=== PATIENT | female | born 1990 | race Caucasian/White ===

== ENCOUNTER 2020-01-24 07:17 | Inpatient (IN) ==
[2020-01-24] MEDS ORDERED: OXYTOCIN 30 UNITS/500 ML BAG IV PRN ×3 (08:22→22:25)
--- NOTE | 2020-01-24 09:13 | Obstetrical Progress Note ---
Date of Service January 24, 2020 Assessment & Plan Admission and Anticipated Discharge Date Admission Date: January 24, 2020 Subjective Met pt and spouse reviewed PNC here for induction for postdates FHR; CAt1 ctx; irregular VE; /-3 Flores bulb placed in cervix with 30cc saline pt tolerated procedure well will start Pitocin augmentation Results & Data ([facility]) Vital Signs (Past 12 Hours) Vital Signs Temp Pulse Resp BP 01/24/20 07:29 36.8 C 18 01/24/20 07:25 71 119/71
[2020-01-24] MEDS: LACTATED RINGER'S 1,000 ML IV PRN ×3 (09:23→17:35)
[2020-01-24 09:26] LABS: Hematocrit (blood only) 36.9 % (37-47); Hemoglobin 12.8 g/dL (12.0-16.0); Mean Corpuscular Volume 92.3 fL (80-100); Platelet Count 210 K/uL (130-400); RDW Coefficient of Variation 12.9 % (11.5-14.5); RDW Standard Deviation 43.7 fL (36.4-46.3); White Blood Count 7.63 K/uL (4.8-10.8)
[2020-01-24 09:28] LABS: Mean Corpuscular Hgb Conc 34.7 g/dL (32-36)
[2020-01-24] MEDS ORDERED: BUPIVACAINE 0.25% 30 ML VIAL ONE (16:25)
[2020-01-24] MEDS ORDERED: fentaNYL 2MCG/ML ROPIV 1.25MG/ML 100 ML BAG EPI ONE (16:25)
[2020-01-24] MEDS ORDERED: fentaNYL citrate 100 MCG/2 ML VIAL ONE (16:25)
[2020-01-24] MEDS ORDERED: ePHEDrine sulfate 50 MG/ML AMP ONE (16:25)
--- NOTE | 2020-01-24 16:43 | Anesthesiology Consultation ---
Date of Service January 24, 2020 Assessment & Plan (1) Encounter for pre-operative examination: Chart Review Chart Review: Patient NOT seen in Pre Admission Testing and Acceptable Risk for Labor Epidural Consults Requested none ASA ASA2 Proposed Anesthesia Anesthesia Type: Labor Epidural Risk / Benefits Reviewed With: PT / POA / Parent / Guardian, Accepts Plan and Informed Consent Obtained History Height/Weight Height: 5 ft 5 in Weight: 73.482 kg Allergies Allergy/AdvReac Type Severity Reaction Status Date / Time No Known Allergies Allergy Mild Verified 12/22/19 19:36 Medications Home Medications Medication Instructions Recorded Confirmed Last Taken PNV cmb#95-ferrous fumarate-FA 1 tab PO DAILY 12/22/19 01/24/20 01/23/20 [] Active Medications Generic Name Dose Route Start Last Admin Trade Name Freq PRN Reason Stop Dose Admin Lactated Ringer's 1,000 mls @ 125 mls/hr 01/24/20 08:22 01/24/20 16:18 Lr IV 01/26/20 08:21 999 mls/hr .Q8H PRN Infusion L&D Protocol Protocol Oxytocin 30 units in 500 mls @ 10 mls/hr 01/24/20 09:11 01/24/20 15:05 Pitocin IV 01/26/20 09:10 0.6 units/hr .Q24H PRN 10 mls/hr Labor Induction/Augmentation Titration Protocol 0.6 UNITS/HR NPO Date Last Intake of Fluids: 01/24/20 Time Last Intake of Fluids: 16:55 Date Last Intake of Solids: 01/24/20 Time Last Intake of Solids: 07:00 Past Medical History Medical History 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 Patient denies active use of anticoagulants other than low dose aspirin. Patient denies numbness, tingling or weakness in lower extremities. Negative for chest pain or shortness of breath. Physical Exam Vital Signs Last Vital Signs Temp 37.0 C 01/24/20 16:31 Pulse 75 01/24/20 16:37 Resp 20 01/24/20 16:31 BP 111/71 01/24/20 16:31 Pulse Ox 99 01/24/20 16:37 Constitutional not obese (Gravid uterus) ENMT Mouth: no TMJ abnormality and oral opening not small Thyromental Distance: > or= 3.5 Finger Breadths Mallampati Class: II Neck normal visual inspection; neck extension not limited Respiratory normal respiratory effort Auscultation: lungs clear to auscultation bilaterally Cardiovascular Rate/Rhythm: regular rate and regular rhythm Heart Sounds: no murmur Neurologic moves all extremities Motor/Sensory: no sensory deficit Psychiatric Orientation: alert and oriented x 3 Testing Laboratory Results 01/24/20 08:36
[2020-01-24] MEDS ORDERED: NALOXONE HCL 1 MG in SODIUM CHLORIDE 0.9% 1000ML 1,000 ML IV PRN (17:33)
[2020-01-24] MEDS ORDERED: ePHEDrine sulfate 50 MG/ML AMP IV PRN (17:33)
[2020-01-24] MEDS ORDERED: fentaNYL 2MCG/ML ROPIV 1.25MG/ML 100 ML BAG EPI PRN (17:33)
[2020-01-24] MEDS ORDERED: ONDANSETRON INJ 2 MG/ML 2 ML VIAL IV PRN (17:33)
[2020-01-24] MEDS ORDERED: NALOXONE HCL 0.4 MG/1 ML VIAL/CARP IV PRN (17:33)
[2020-01-24] MEDS ORDERED: DiphenhydrAMINE HCL 50 MG/ML VIAL IV PRN (17:33)
[2020-01-24] MEDS ORDERED: NALBUPHINE HCL INJ 10 MG/ML AMP IV PRN (17:33)
--- NOTE | 2020-01-24 18:12 | Obstetrical Progress Note ---
Date of Service January 24, 2020 Assessment & Plan Admission and Anticipated Discharge Date Admission Date: January 24, 2020 Subjective pt doing well Epidural analgesia on board FHR; CAT1 Ctx; 1-3mins Pitocin; 10mu VE; 4/50/-2 AROM with amnio hook- clear amniotic fluid Results & Data ([facility]) Vital Signs (Past 12 Hours) Vital Signs Temp Pulse Resp BP Pulse Ox 01/24/20 18:07 73 100 01/24/20 18:02 71 100 01/24/20 18:00 74 20 118/72 01/24/20 17:57 96 H 100 01/24/20 17:56 63 109/68 01/24/20 17:52 104 H 100 01/24/20 17:50 125 H 113/71 01/24/20 17:47 75 99 01/24/20 17:45 83 114/72 01/24/20 17:42 86 100 01/24/20 17:40 92 H 108/66 01/24/20 17:38 83 109/65 01/24/20 17:37 97 H 100 01/24/20 17:36 74 111/64 01/24/20 17:34 73 109/62 01/24/20 17:32 77 107/62 100 01/24/20 17:30 91 H 20 104/63 01/24/20 17:28 88 101/61 01/24/20 17:27 65 100 01/24/20 17:26 86 94/55 L 01/24/20 17:24 88 77/43 L 01/24/20 17:22 83 104/60 100 01/24/20 17:20 69 107/64 01/24/20 17:18 72 20 114/67 01/24/20 17:17 78 100 01/24/20 17:12 76 100 01/24/20 17:07 68 100 01/24/20 17:02 76 100 01/24/20 16:57 69 100 01/24/20 16:52 70 99 01/24/20 16:47 70 99 01/24/20 16:42 62 100 01/24/20 16:37 75 99 01/24/20 16:32 73 99 01/24/20 16:31 37.0 C 73 20 111/71 01/24/20 16:00 20 01/24/20 15:58 74 124/69 06/16/20 14:56 36.7 C 74 20 110/64 01/24/20 14:40 18 01/24/20 14:25 61 18 114/66 01/24/20 13:42 62 18 115/59 L 01/24/20 13:40 18 01/24/20 13:10 18 01/24/20 13:00 18 01/24/20 12:40 18 01/24/20 12:28 18 01/24/20 12:12 60 18 109/59 L 01/24/20 11:40 18 01/24/20 11:34 69 107/60 01/24/20 11:33 18 01/24/20 11:10 18 01/24/20 10:57 18 01/24/20 10:27 69 18 102/61 01/24/20 10:10 18 01/24/20 09:56 18 01/24/20 09:24 18 01/24/20 09:23 68 108/70 01/24/20 07:29 36.8 C 18 01/24/20 07:25 71 119/71
[2020-01-24] MEDS ORDERED: METHYLERGONOVINE MALEATE 0.2 MG/ML AMP ONE (22:19)
[2020-01-24] MEDS ORDERED: miSOPROStoL 200 MCG TAB ONE (22:20)
[2020-01-24] MEDS ORDERED: miSOPROStoL 200 MCG TAB PR ONE (22:25)
[2020-01-24] MEDS ORDERED: DIPHTHERIA/TETANUS/PERTUSSIS 0.5 ML SYR/VIAL IM ONE (22:25)
[2020-01-24] MEDS ORDERED: bisacodyL 10 MG SUPP PR PRN (22:25)
[2020-01-24] MEDS ORDERED: METHYLERGONOVINE MALEATE 0.2 MG/ML AMP IM ONE (22:25)
[2020-01-24] MEDS ORDERED: SUPERCREAM 0.870% 15 GM JAR EXT PRN (22:25)
[2020-01-24] MEDS ORDERED: MEASLES, MUMPS & RUBELLA VIRUS VIAL SQ ONE (22:25)
[2020-01-24] MEDS ORDERED: HYDROCORTISONE ACETATE 25 MG SUPP PR PRN (22:25)
[2020-01-24] MEDS ORDERED: BENZOCAINE 20% AER SPR 82.5 GM CAN EXT PRN (22:25)
[2020-01-24 22:37] LABS: CO2 Cord Arterial Blood 60 mmHg (39.1-73.5); HCO3 Cord Arterial Blood 28 mmol/L (19.7-28.5); PO2 Cord Arterial Blood 18 mmHg (4.1-31.7); pH Cord Arterial Blood 7.29 (7.1-7.38)
[2020-01-24 22:41] LABS: Cord Venous Blood HCO3 26 mmol/L (18.4-26.8); Cord Venous Blood PCO2 45 mmHg (30.4-57.2); Cord Venous Blood PO2 30 mmHg (14.1-43.3); Cord Venous Blood pH 7.38 (7.20-7.44); Oxygen Sat Cord Arterial Blood < 60.0 % (<60)
--- NOTE | 2020-01-24 22:48 | Anesthesia Procedure Note ---
Date of Service January 24, 2020 Anesthesia Post Epidural Note Vital Signs Vital Signs: Temp Pulse Resp BP Pulse Ox 36.7 C 82 18 111/56 L 99 01/24/20 22:21 01/24/20 22:40 01/24/20 22:40 01/24/20 22:40 01/24/20 22:18 Pain Intensity Abdomen: Pain Intensity: 0 Notes Mental Status: alert / awake / arousable and participated in evaluation Nausea / Vomiting: adequately controlled Pain: adequately controlled Airway Patency, RR, SpO2: stable & adequate BP & HR: stable & adequate Hydration State: stable & adequate Neuraxial Anesthesia: was administered and sensory block is resolving Anesthetic Complications: no major complications apparent and Pt Satisfied with anesthetic care Epidural: Removed without complications and With tip intact Notes: Epidural site clean, dry and intact. No signs of edema, erythema or bruising at insertion site. Pt instructed to request anesthesia if she has residual lower extremity numbness or if she develops lower extremity pain or weakness, back pain or headache.
[2020-01-25] MEDS: IBUPROFEN 600 MG TAB PO PRN ×4 (02:42→15:18)
[2020-01-25 06:59] LABS: Hematocrit (blood only) 35.5 % (37-47); Hemoglobin 12.3 g/dL (12.0-16.0); Mean Corpuscular Hemoglobin 31.5 pg (25-34); Mean Corpuscular Hgb Conc 34.6 g/dL (32-36); Mean Platelet Volume 9.7 fL (7.4-10.4); Platelet Count 193 K/uL (130-400); RDW Coefficient of Variation 12.7 % (11.5-14.5); RDW Standard Deviation 42.5 fL (36.4-46.3); White Blood Count 13.36 K/uL (4.8-10.8)
[2020-01-25] MEDS: PRENATAL VITAMIN 1 TAB PO SCH (08:30)
[2020-01-25] MEDS: FERROUS SULFATE 325 MG TAB PO SCH (08:30)
[2020-01-25] MEDS: DOCUSATE SODIUM 100 MG CAP PO SCH ×2 (08:32→19:45)
--- NOTE | 2020-01-25 09:18 | Delivery Summary ---
DATE OF OPERATION: 01/24/2020 The patient delivered a live infant male in right occiput anterior presentation. There was nuchal cord which was easily reduced. was delivered, placed on mother's abdomen. Cord was clamped and cut. The patient's 's Apgars are 7 and 9. Placenta is spontaneously delivered. Inspection of the placenta shows a normal grossly looking placenta with 3-vessel cord. Cord blood and cord gases obtained. Inspection of the perineum showed no laceration or tears. ESTIMATED BLOOD LOSS: 450 mL. Baby and mother are doing well into recovery. All instruments were removed from the vagina and accounted for x2 including retractors and sponges. I attest to the content of the Intraoperative Record and any orders documented therein. Any exception s are noted below.
[2020-01-25] MEDS: ACETAMINOPHEN 325 MG TAB PO PRN ×2 (13:30→19:41)
[2020-01-25] MEDS ORDERED: bisacodyL 5 MG TABEC PO SCH (20:00)
[2020-01-26] MEDS: IBUPROFEN 600 MG TAB PO PRN (00:33)
[2020-01-26 05:54] LABS: Hematocrit (blood only) 33.5 % (37-47); Hemoglobin 11.4 g/dL (12.0-16.0)
[2020-01-26] MEDS: FERROUS SULFATE 325 MG TAB PO SCH (08:26)
[2020-01-26] MEDS: DOCUSATE SODIUM 100 MG CAP PO SCH (08:26)
[2020-01-26] MEDS: PRENATAL VITAMIN 1 TAB PO SCH (08:26)
--- NOTE | 2020-01-26 09:42 | Obstetrical Progress Note ---
Date of Service January 26, 2020 Assessment & Plan Admission and Anticipated Discharge Date Admission Date: January 24, 2020 Subjective Patient is seen and examined. She feels well, no complaints. Wants to be discharged today Ambulating without dizziness Voiding without difficulty Tolerating regular diet with out N&V Bleeding is minimal No fever/ chills/ CP/ SOB/ N&V/ Leg pain Breast feeding without problems Vital Signs Temp Pulse Pulse Resp BP BP Pulse Ox 01/26/20 07:30 36.4 C L 51 L 16 103/66 01/26/20 00:30 36.6 C 60 18 101/65 01/25/20 19:40 36.7 C 63 18 102/65 01/25/20 15:40 36.7 C 64 16 122/72 01/25/20 13:25 36.8 C 76 16 106/55 L 99 01/25/20 12:20 36.8 C 67 16 122/73 Lab Results 01/24/20 01/24/20 01/24/20 Range/Units 08:36 22:13 22:13 WBC 7.63 (4.8-10.8) K/uL RBC 4.00 L (4.2-5.4) M/uL Hgb 12.8 (12.0-16.0) g/dL Hct 36.9 L (37-47) % MCV 92.3 (80-100) fL MCH 32.0 (25-34) pg MCHC 34.7 (32-36) g/dL RDW Std Deviation 43.7 (36.4-46.3) fL RDW Coeff of Kristen 12.9 (11.5-14.5) % Plt Count 210 (130-400) K/uL MPV 10.0 (7.4-10.4) fL Cord ABG pH 7.29 (7.1-7.38) Cord ABG pCO2 60 (39.1-73.5) mmHg Cord ABG pO2 18 (4.1-31.7) mmHg Cord ABG HCO3 28 (19.7-28.5) mmol/L Cord ABG Base Excess 0.0 (-9-1.8) mEq/L Cord ABG O2 Sat < 60.0 (<60) % Cord VBG pH 7.38 (7.20-7.44) Cord VBG pCO2 45 (30.4-57.2) mmHg Cord VBG pO2 30 (14.1-43.3) mmHg Cord VBG HCO3 26 (18.4-26.8) mmol/L Cord VBG Base Excess 0.0 (-7.7-1.9) mEq/L Cord VBG O2 Sat 65.0 (<68) % Barometric Pressure 737.1 737.2 mm/Hg Blood Gas Comments MARKS MARKS Blood Type Antibody Screen Screen Mother's Rh Status Maternal Bleed ML KB Cells Counted /Adult RBC Ratio 01/25/20 01/25/20 01/26/20 Range/Units 06:39 11:03 05:35 WBC 13.36 H (4.8-10.8) K/uL RBC 3.90 L (4.2-5.4) M/uL Hgb 12.3 11.4 L (12.0-16.0) g/dL Hct 35.5 L 33.5 L (37-47) % MCV 91.0 (80-100) fL MCH 31.5 (25-34) pg MCHC 34.6 (32-36) g/dL RDW Std Deviation 42.5 (36.4-46.3) fL RDW Coeff of Kristen 12.7 (11.5-14.5) % Plt Count 193 (130-400) K/uL MPV 9.7 (7.4-10.4) fL Cord ABG pH (7.1-7.38) Cord ABG pCO2 (39.1-73.5) mmHg Cord ABG pO2 (4.1-31.7) mmHg Cord ABG HCO3 (19.7-28.5) mmol/L Cord ABG Base Excess (-9-1.8) mEq/L Cord ABG O2 Sat (<60) % Cord VBG pH (7.20-7.44) Cord VBG pCO2 (30.4-57.2) mmHg Cord VBG pO2 (14.1-43.3) mmHg Cord VBG HCO3 (18.4-26.8) mmol/L Cord VBG Base Excess (-7.7-1.9) mEq/L Cord VBG O2 Sat (<68) % Barometric Pressure mm/Hg Blood Gas Comments Blood Type B Positive Antibody Screen NEGATIVE Screen Cancelled Mother's Rh Status RH Pos Maternal Bleed 0 ML KB Cells Counted 0 /Adult RBC Ratio 0.00 PE: General: Alert, orientedx3, NAD Abd: soft, NT, fundus firm, below Umbilicus Perineum intact, Lochia rubra minimal Ext; NT, no edema AP: 29 yo s/p , ppd# 2 VSS Afebrile doing well Continue routine care All questions were answered D/C home , f/u in office Results & Data ([facility]) Vital Signs (Past 12 Hours) Vital Signs Temp Pulse Resp BP 01/26/20 07:30 36.4 C L 51 L 16 103/66 01/26/20 00:30 36.6 C 60 18 101/65
== END 2020-01-26 12:52 | disposition home or self-care (01) | DRG 807 ==
LOC: 4S1 07:17 → 4S2 01-25 00:40